=== PATIENT | female | born 1955 | race Caucasian/White ===

== ENCOUNTER 2021-05-13 17:55 | Emergency (ER) | payer MEDICARE, OTHER ==
[~2021-05-13 17:55] MED LIST: ASPIRIN 325MG325 MG PO; HYDROCHLOROTHIA25 MG PO; MEGACE TAB 40 M40 MG PO; OXYCODONE HCL5 MG PO; PERCOCET 5/325 T1 EA PO; PREDNISONE10 MG PO; PROZAC20 MG PO; SYNTHROID25 MCG PO; VANCOMYCIN HCL125 MG PO
[2021-05-13 20:05] LABS: HEMOGLOBIN 11.7 gm/dl (12.3-15.3); RED BLOOD COUNT 4.27 M/UL (4.00-5.10); WHITE BLOOD COUNT 13.1 K/UL (4.5-11.0)
[2021-05-13 20:59] LABS: BUN/CREATININE RATIO 29 (0-10)
== END 2021-05-13 22:25 | disposition left against medical advice (07) ==
LOC: ER1 17:55
PROVIDERS: Family Medicine
DX: H53.2 Diplopia (principal); I49.8 Other specified cardiac arrhythmias; F17.200 Nicotine dependence, unspecified, uncomplicated
CPT/HCPCS: 70482; 70496; 70498; 71046; 80053; 82550; 82553; 83874; 84439; 84443; 84484; 85025; 85610; 85730; 93005; 96374; 96375; 99283; J1200; J2930; Q9967

== ENCOUNTER 2021-08-22 07:26 | Inpatient (IN) | payer MEDICARE, OTHER ==
[~2021-08-22] VITALS: Ht 170.2 cm; Wt 49.9 kg
[~2021-08-22 07:26] MED LIST changes: -PROZAC20 MG PO
[2021-08-22 08:38] LABS: HEMOGLOBIN 14.9 gm/dl (12.3-15.3); RED BLOOD COUNT 5.08 M/UL (4.00-5.10); WHITE BLOOD COUNT 14.3 K/UL (4.5-11.0)
[2021-08-22 09:10] LABS: BUN/CREATININE RATIO 90 (0-10)
[2021-08-22] MEDS ORDERED: HEADACHE RELIE1 EACH PO (14:52)
[2021-08-22] MEDS ORDERED: CATAPRES 0.1MG0.1 MG PO (14:53)
[2021-08-22] MEDS ORDERED: ELAVIL 50 MG TA50 MG PO (14:53)
[2021-08-22] MEDS ORDERED: ZOFRAN 4 MG TAB4 MG PO (14:54)
[2021-08-22] MEDS ORDERED: OMEPRAZOLE20 M1 PO (14:54)
[2021-08-22] MEDS ORDERED: KLOR-CON 1010 MEQ PO (14:55)
[2021-08-22] MEDS ORDERED: TIZANIDINE HCL4 MG PO (14:55)
[2021-08-22] MEDS ORDERED: IBUPROFEN800 MG PO (14:56)
[2021-08-22] MEDS ORDERED: HYDROCODON-ACE1 EAC2 PO (14:56)
[2021-08-22] MEDS ORDERED: NEURONTIN800 MG PO (14:57)
[2021-08-22] MEDS ORDERED: MYCOSTATIN100000 UTS PO (14:57)
[2021-08-22] MEDS ORDERED: PROZAC20 MG PO (21:29)
[2021-08-23 02:14] LABS: WHITE BLOOD COUNT 15.4 K/UL (4.5-11.0)
[2021-08-23 02:15] LABS: HEMOGLOBIN 11.7 gm/dl (12.3-15.3); RED BLOOD COUNT 4.01 M/UL (4.00-5.10)
[2021-08-23 03:02] LABS: BUN/CREATININE RATIO 73 (0-10)
[2021-08-24 06:03] LABS: BUN/CREATININE RATIO 80 (0-10)
[2021-08-24 11:16] LABS: HBSAG SCREEN Negative (Negative); HEP B CORE AB, TOT Negative (Negative); HEP C VIRUS AB 0.2 (0.0-0.9)
[2021-08-24 16:13] LABS: HEMOGLOBIN 11.6 gm/dl (12.3-15.3); RED BLOOD COUNT 3.99 M/UL (4.00-5.10)
[2021-08-25 05:09] LABS: HEMOGLOBIN 10.9 gm/dl (12.3-15.3); RED BLOOD COUNT 3.79 M/UL (4.00-5.10); WHITE BLOOD COUNT 25.9 K/UL (4.5-11.0)
[2021-08-25 05:48] LABS: BUN/CREATININE RATIO 47 (0-10)
[2021-08-25 11:31] LABS: BUN/CREATININE RATIO 48 (0-10)
[2021-08-25 16:12] LABS: ALKALINE PHOSPHATASE, S 783 IU/L (44-121); BONE FRACTION: 5 % (14-68); INTESTINAL FRAC.: 1 % (0-18); LIVER FRACTION: 95 % (18-85)
[2021-08-26 03:48] LABS: HEMOGLOBIN 8.9 gm/dl (12.3-15.3); RED BLOOD COUNT 3.06 M/UL (4.00-5.10); WHITE BLOOD COUNT 13.1 K/UL (4.5-11.0)
[2021-08-26 05:38] LABS: BUN/CREATININE RATIO 41 (0-10)
[2021-08-27 05:26] LABS: BUN/CREATININE RATIO 41 (0-10)
[2021-08-27 08:57] LABS: HEMOGLOBIN 9.5 gm/dl (12.3-15.3); RED BLOOD COUNT 3.28 M/UL (4.00-5.10)
[2021-08-27 09:01] LABS: WHITE BLOOD COUNT 8.5 K/UL (4.5-11.0)
[2021-08-28 02:36] LABS: HEMOGLOBIN 8.9 gm/dl (12.3-15.3); RED BLOOD COUNT 3.06 M/UL (4.00-5.10)
[2021-08-28 02:57] LABS: BUN/CREATININE RATIO 35 (0-10)
[2021-08-29 04:48] LABS: BUN/CREATININE RATIO 33 (0-10)
[2021-08-30 05:18] LABS: HEMOGLOBIN 8.4 gm/dl (12.3-15.3); RED BLOOD COUNT 2.86 M/UL (4.00-5.10)
[2021-08-30 05:26] LABS: WHITE BLOOD COUNT 18.7 K/UL (4.5-11.0)
[2021-08-30 06:20] LABS: BUN/CREATININE RATIO 28 (0-10)
[2021-08-31 06:43] LABS: HEMOGLOBIN 8.4 gm/dl (12.3-15.3); RED BLOOD COUNT 2.93 M/UL (4.00-5.10); WHITE BLOOD COUNT 20.4 K/UL (4.5-11.0)
[2021-08-31 08:40] LABS: BUN/CREATININE RATIO 35 (0-10)
--- NOTE | 2021-08-31 19:45 | NUR ---
Patient information given to [facility]. Pt condition alert and stable. Heparin infusing at 17mls/hr per heparin protocol.
== END 2021-08-31 19:28 | disposition short-term general hospital (02) | DRG 853 ==
LOC: ER1 07:26 → CDU 13:01 → CCU 13:01 → PROG CARE 13:01 → CCU 08-24 18:32
PROVIDERS: Emergency Medicine; Internal Medicine; Internal Medicine Gastroenterology; Internal Medicine Pulmonary Disease; Physician Assistant Medical; Surgery; ADMIT Internal Medicine
PROC: 3E0336Z Introduction of Nutritional Substance into Peripheral Vein, Percutaneous Approach (ICD-10-PCS; principal; 2021-08-23)
PROC: 3E03329 Introduction of Other Anti-infective into Peripheral Vein, Percutaneous Approach (ICD-10-PCS; 2021-08-23)
PROC: 0DH63UZ Insertion of Feeding Device into Stomach, Percutaneous Approach (ICD-10-PCS; 2021-08-23)
PROC: 0DTG0ZZ Resection of Left Large Intestine, Open Approach (ICD-10-PCS; 2021-08-24)
PROC: 0D1L0Z4 Bypass Transverse Colon to Cutaneous, Open Approach (ICD-10-PCS; 2021-08-24)
PROC: 02HV33Z Insertion of Infusion Device into Superior Vena Cava, Percutaneous Approach (ICD-10-PCS; 2021-08-24)
PROC: B548ZZA Ultrasonography of Superior Vena Cava, Guidance (ICD-10-PCS; 2021-08-24)
PROC: 3E043XZ Introduction of Vasopressor into Central Vein, Percutaneous Approach (ICD-10-PCS; 2021-08-24)
DX: A41.89 Other specified sepsis (principal); G93.41 Metabolic encephalopathy; K55.039 Acute (reversible) ischemia of large intestine, extent unspecified; Z20.822 Contact with and (suspected) exposure to COVID-19; E43 Unspecified severe protein-calorie malnutrition; J96.01 Acute respiratory failure with hypoxia; K63.1 Perforation of intestine (nontraumatic); N30.00 Acute cystitis without hematuria; Z68.1 Body mass index [BMI] 19.9 or less, adult; B15.9 Hepatitis A without hepatic coma; E87.0 Hyperosmolality and hypernatremia; E87.1 Hypo-osmolality and hyponatremia; I70.262 Atherosclerosis of native arteries of extremities with gangrene, left leg; I96 Gangrene, not elsewhere classified; Z66 Do not resuscitate; Z51.5 Encounter for palliative care; E03.9 Hypothyroidism, unspecified; K52.9 Noninfective gastroenteritis and colitis, unspecified; K27.9 Peptic ulcer, site unspecified, unspecified as acute or chronic, without hemorrhage or perforation; K21.9 Gastro-esophageal reflux disease without esophagitis; Z96.651 Presence of right artificial knee joint; J44.9 Chronic obstructive pulmonary disease, unspecified; E87.6 Hypokalemia; E83.39 Other disorders of phosphorus metabolism; I71.4 Abdominal aortic aneurysm, without rupture; H54.40 Blindness, one eye, unspecified eye; K59.00 Constipation, unspecified; B96.1 Klebsiella pneumoniae [K. pneumoniae] as the cause of diseases classified elsewhere; R73.9 Hyperglycemia, unspecified; Z90.49 Acquired absence of other specified parts of digestive tract; Z98.890 Other specified postprocedural states; Z90.89 Acquired absence of other organs; Z87.891 Personal history of nicotine dependence; Z93.1 Gastrostomy status; Z79.82 Long term (current) use of aspirin; Z79.899 Other long term (current) drug therapy; R65.20 Severe sepsis without septic shock
CPT/HCPCS: 36415; 36600; 51702; 70450; 71045; 73590; 73610; 73630; 74018; 80048; 80053; 81001; 82550; 82553; 82803; 82962; 82977; 83605; 83690; 83735; 84075; 84080; 84100; 84132; 84295; 84466; 84484; 85025; 85027; 85610; 85730; 86704; 86706; 86708; 86709; 86803; 87040; 87077; 87086; 87186; 87340; 93005; 93925; 94002; 94003; 94760; 96374; 96375; 96376; 97110-GP-CQ; 97161; 97530-GP-CQ; 99285; C1751; C9113; J0360; J0696; J1100; J1170; J1200; J1644; J1650; J2001; J2185; J2270; J2370; J2405; J2543; J2550; J2704; J2930; J3010; J3475; J3480; J7030; J7050; J7070; J7120; Q9967; U0002